=== PATIENT | female | born 1935 | race Caucasian/White ===

== ENCOUNTER 2017-05-11 02:14 | Emergency (ER) | payer OTHER, MEDICAID ==
--- NOTE | 2017-05-11 02:23 | EDPHY ---
H & P HPI/ROS: HPI CHIEF COMPLAINT: Possible bleeding from Farley catheter. HISTORY OF PRESENT ILLNESS: This patient is a very pleasant 82-year-old female she presents from [facility] for possible blood from her Farley catheter. Upon arrival to the emergency room I did evaluate her. She denies any complaints. She denies blood coming from her catheter but she states staff told her there may be some pink blood from her catheter. She has a chronic indwelling Farley catheter. She denies any abdominal pain chest pain shortness of breath or fever. Venus RN at bedside we did not visualize any blood around the Farley catheter. Farley catheter is in good position. No trauma to the vagina. No blood in the Farley catheter bag. She is wearing a right leg bag. However on rectal exam she has extensive hemorrhoids in 1 of the hemorrhoids was bleeding a little bit bright red blood. Rectal exam shows multiple external hemorrhoids body and soft. 1 is friable with some bright blood. No black tarry stool or blood on rectal exam from the rectum region except for hemorrhoidal. Past Medical History: Chronic indwelling Farley catheter Past Surgical History: No recent surgery Social History: Resides at [facility]. Family History: Noncontributory ROS REVIEW OF SYSTEMS: A comprehensive 10 point review of systems is otherwise negative aside from elements mentioned in the history of present illness. Exam Constitutional appears well nontoxic, triage nursing summary reviewed, vital signs reviewed, awake/alert. Eyes normal conjunctivae and sclera, EOMI, PERRLA. HENT normal inspection, atraumatic, moist mucus membranes, no epistaxis, neck supple/ no meningismus, no raccoon eyes. Respiratory clear to auscultation bilaterally, normal breath sounds, no respiratory distress, no wheezing. Cardiovascular rate normal, regular rhythm, no murmur, no edema, distal pulses normal. Gastrointestinal soft, non-tender, no rebound, no guarding, normal bowel sounds, no distension, no pulsatile mass. Genitourinary no CVA tenderness. Rectal exam: However on rectal exam she has extensive hemorrhoids in 1 of the hemorrhoids was bleeding a little bit bright red blood. Rectal exam shows multiple external hemorrhoids body and soft. 1 is friable with some bright blood. No black tarry stool or blood on rectal exam from the rectum region except for hemorrhoidal. Musculoskeletal no midline vertebral tenderness, full range of motion, no calf swelling, no tenderness of extremities, no meningismus, good pulses, neurovascularly intact. Skin pink, warm, & dry, no rash, skin atraumatic. Neurologic awake, alert and oriented x 3, AAOx3, moves all 4 extremities equally, motor intact, sensory intact, CN II-XII intact, normal cerebellar, normal vision, normal speech. Psychiatric normal mood/affect. Heme/Lymph/Immune no lymphadenopathy. Differential Diagnosis: Includes but is not limited to in a particular order, Farley catheter bleed, cystitis, Farley catheter balloon causing tension causing bleeding from the bladder, rectal bleeding, hemorrhoidal bleeding Medical Decision Making: This patient has no evidence of bleeding of the Farley catheter. Small amount of bright red blood on to shoe paper in her pants. This is from hemorrhoids. Visible on exam. Will allow her to be got discharged back to [facility]. Will place on Proctofoam hemorrhoidal cream. Additionally she understands return emergency room there is any further pain questions or concerns or further bleeding. On rectal exam there is no significant GI bleeding or black tarry stool. Re-evaluation: 0231: No evidence of cystitis or urinary bleed. Small amount of pink blood in her depends is from external hemorrhoids that are bleeding. No significant brisk bleed. Recommend hemorrhoidal cream. Will allow her to be discharged back to herity at [facility]. Source: Patient, EMS Constitutional: Initial Vital Signs Temperature (C) 36.8 C 05/11/17 02:20 Heart Rate 91 05/11/17 02:20 Respiratory Rate 18 05/11/17 02:20 Blood Pressure 152/108 H 05/11/17 02:20 O2 Sat (%) 95 05/11/17 02:20 O2 Delivery Mode Room Air Allergies/Adverse Reactions: No Known Allergies Allergy (Unverified 05/11/17 02:33) Home Medications: Medication Instructions Recorded Hydrocortisone [Procto-Med Hc] 30 gm TP BID #1 [email or web address] 05/11/17 Departure - Departure Disposition: Home, Routine, Self-Care Clinical Impression: Bleeding hemorrhoids Condition: Good Instructions: Hemorrhoids (ED) Additional Instructions: 1.You have bleeding from her external hemorrhoids. 2. Use this medication to help shrink the hemorrhoids. 3. Return emergency room if there is worsening symptoms questions or concerns. Referrals: Patient,NotPresent [Primary Care Provider] - As per Instructions Prescriptions: Hydrocortisone [Procto-Med Hc] 30 gm TP BID #1 [email or web address]
[2017-05-11 02:26] VITALS: TEMP 98.2; O2SAT 95
[2017-05-11 03:21] VITALS: BP 136/99; PULSE 86; RESP 17
== END 2017-05-11 03:18 | disposition home or self-care (01) ==
LOC: EDUNIT#
DX: K64.4 Residual hemorrhoidal skin tags (principal)

== ENCOUNTER 2017-12-10 09:45 | Day surgery (SDC) | payer OTHER, MEDICAID ==
--- NOTE | 2017-12-07 15:33 | CPEKG ---
Heart Rate: 72 RR Interval: 833 P-R Interval: 212 QRSD Interval: 114 QT Interval: 412 QTC Interval: 451 P [place]amo[place]: 0 QRS [place]: -66 T Wave [place]: 70 EKG Severity - ABNORMAL ECG - EKG Impression: SINUS RHYTHM EKG Impression: VENTRICULAR PREMATURE COMPLEX EKG Impression: LEFT ANTERIOR FASCICULAR BLOCK EKG Impression: PROBABLE LEFT VENTRICULAR HYPERTROPHY Electronically Signed By: Christophe Barrera 09-Dec-2017 11:36:57
[2017-12-10] MEDS ORDERED: LR 1,000 ML IV ONE (10:25)
[2017-12-10] MEDS ORDERED: LIDOCAINE 1% 2 ML INJ ID PRN (10:25)
[2017-12-10] MEDS ORDERED: PROPOFOL/EMULSION 500 MG/50 ML BOTTLE IV ONE (12:11)
[2017-12-10] MEDS ORDERED: LIDOCAINE 2% JELLY 20 ML (UROJECT) ONE (12:17)
[2017-12-10] MEDS ORDERED: IOPAMIDOL (ISOVUE-M 300) 15 ML VIAL ONE (12:17)
--- NOTE | 2017-12-10 13:12 | PDHPUP ---
History & Physical Update H&P update statement: This history and physical update is based on an assessment of the patient which was completed after admission or registration (within 24 hours), but prior to the surgery/procedure. H&P update: no change in patient's condition since H&P completed
[2017-12-10] MEDS ORDERED: BUPIVACAINE/EPI 0.5% 30 ML SDV ONE (13:13)
[2017-12-10] MEDS ORDERED: MIDAZOLAM 2 MG/2 ML VIAL ONE (13:15)
[2017-12-10] MEDS ORDERED: fentaNYL 100 MCG/2 ML INJ ONE (13:24)
--- NOTE | 2017-12-10 13:31 | POSTOPPROG ---
Post Op Note Date of Operation: 12/10/17 Surgeon: Brenda Perales (# [id number]) Anesthesia: LMA Pre-op Diagnosis: Urinary retention Post-op Diagnosis: Urinary retention Procedure: Cysto, formal suprapubic catheter placement Findings: See op note Inf/Abcess present in the surg proc area at time of surgery?: No EBL: Minimal (2 cc) Complications: None Specimen(s): None
[2017-12-10] MEDS ORDERED: ALBUTEROL 3 ML DEYVIAL IH PRN (13:47)
[2017-12-10] MEDS ORDERED: DEXAMETHASONE 4 MG/ML VIAL IVP PRN (13:47)
[2017-12-10] MEDS ORDERED: ONDANSETRON 4 MG/2 ML VIAL IVP PRN (13:47)
[2017-12-10] MEDS ORDERED: MEPERIDINE 25 MG/0.5 ML AMP IVP PRN (13:47)
[2017-12-10] MEDS ORDERED: NALOXONE HCL 0.4 MG/ML INJ IVP PRN (13:47)
[2017-12-10] MEDS ORDERED: fentaNYL 100 MCG/2 ML INJ IVP PRN (13:47)
--- NOTE | 2017-12-10 13:52 | PDANEPAE ---
ANE Past Medical History - Cardiovascular History Hx Hypertension: Yes Hx Arrhythmias: No Hx Chest Pain: No Hx Coronary Artery / Peripheral Vascular Disease: Yes Hx CHF / Valvular Disease: No Hx Palpitations: No Cardiovascular History Comment: MINIMAL BLOCKAGE -ANGIOGRAM ';LASIX FOR LEGS/ ANKLES -WEARS COMPRESSION HOSE. - Pulmonary History Hx COPD: No Hx Asthma/Reactive Airway Disease: Yes Hx Recent Upper Respiratory Infection: No Hx Oxygen in Use at Home: No Hx Sleep Apnea: No Sleep Apnea Screening Result - Last Documented: Negative Pulmonary History Comment: HASN'T USED NEBULIZER (FOR URI) 02-12. LUNGS SUSCEPTIBLE TO INFECTION. PNEUMONIA . - Neurologic History Hx Cerebrovascular Accident: No Hx Seizures: No Hx Dementia: No - Endocrine History Hx Diabetes: No Endocrine History Comment: HYPOTHYROID - Renal History Hx Renal Disorders: Yes Renal History Comment: BOSTON PLACED FOR URINARY RETENTION . - Liver History Hx Hepatic Disorders: No - Neurological & Psychiatric Hx Hx Neurological and Psychiatric Disorders: No - Cancer History Hx Cancer: No - Congenital Disorder History Hx Congenital Disorders: No - GI History Hx Gastrointestinal Disorders: Yes Gastrointestinal History Comment: HX ULCERS-ON RANITIDINE. - Other Health History Other Health History: BOSTON CATH TO BE CHANGED TO SUPRA PUBIC CATH. OA-KNEES, HANDS. - Chronic Pain History Chronic Pain: No - Surgical History Prior Surgeries: KNEE-MCL ;. CORONARY ANGIOGRAM ANE Review of Systems Review of Systems: - Exercise capacity METS (RN): 3 METS ANE Patient History - Allergies Allergies/Adverse Reactions: No Known Allergies Allergy (Verified 12/02/17 15:18) - Home Medications Home Medications: Benadryl 12/02/17 [Last Taken 12/09/17] Ferrous Sulfate 12/02/17 [Last Taken 12/09/17] Furosemide 12/02/17 [Last Taken 12/08/17] Levothyroxine Sodium 12/02/17 [Last Taken 12/10/17] Metoprolol Tartrate 12/02/17 [Last Taken 12/10/17] Ranitidine HCl 12/02/17 [Last Taken 12/09/17] Sodium Chloride 12/02/17 [Last Taken 12/10/17] Vitamin D3 12/02/17 [Last Taken 12/09/17] - NPO status NPO Since - Liquids (Date): 12/10/17 NPO Since - Liquids (Time): 08:30 NPO Since - Solids (Date): 12/09/17 NPO Since - Solids (Time): 17:30 - Anes Hx Anes Hx: no prior problems - Smoking Hx Smoking Status: Never smoked ANE Labs/Vital Signs - Labs Result Diagrams: 12/07/17 15:30 - Vital Signs Blood Pressure: 137/84 Heart Rate: 68 Respiratory Rate: 15 O2 Sat (%): 94 Height: 167.64 cm Weight: 71.668 kg ANE Physical Exam - Airway Neck exam: decreased ROM Mallampati Score: Class 2 Mouth exam: normal dental/mouth exam - Pulmonary Pulmonary: no respiratory distress, clear to auscultation, reduced air movement - Cardiovascular Cardiovascular: regular rate and rhythym, systolic murmur - ASA Status ASA Status: III ANE Anesthesia Plan Anesthesia Plan: GA w LMA
[2017-12-10] MEDS ORDERED: BACITRACIN ZINC 14.2 GM OINTTUBE TP ONE (14:04)
[2017-12-10] MEDS ORDERED: ONDANSETRON 4 MG/2 ML VIAL ONE (14:41)
--- NOTE | 2017-12-10 15:00 | GOP ---
[f rep st] OPERATIVE REPORT DATE OF OPERATION: 12/10/2017 SURGEON: Brenda Perales MD ANESTHESIA: Laryngeal mask with local. PREOPERATIVE DIAGNOSIS: Urinary retention. POSTOPERATIVE DIAGNOSIS: Urinary retention. PROCEDURE PERFORMED: Cystourethroscopy with formal suprapubic catheter placement. FINDINGS: No changes in cystoscopic appearance of the bladder compared to what was noted previously in the office. SPECIMENS: None. ESTIMATED BLOOD LOSS: Minimal (~ 2 cc). INDICATIONS: This woman has had recurrent urinary retention requiring indwelling Farley catheter. After discussions between the patient, myself, and her family, the patient has opted to undergo formal suprapubic catheter placement at this time. The indications for the procedures, as well as potential risks and complications, were discussed with the patient preoperatively. She appeared to understand, her questions were answered, and she wished to proceed. Written informed surgical consent was thereafter obtained. DESCRIPTION OF PROCEDURE: The patient was brought to the operating room and administered laryngeal mask anesthesia. She was carefully placed in the dorsal lithotomy position on the cystoscopic table. The existing indwelling Farley catheter was removed. The abdomen and genitalia were sterilely prepped with Betadine scrub and paint then draped in usual sterile fashion. Cystoscopy was performed with the 30-degree and 70 degree lenses through a 22- Yemeni sheath. The urethra was unremarkable. Bladder was heavily trabeculated with a few shallow diverticula. Otherwise, no worrisome areas of abnormal erythema, tumors, nor foreign bodies were appreciated. Ureteral orifices were normal in regards to shape and position along the trigone. There was some noted mucosal inflammation at the bladder base posteriorly, consistent with recent indwelling Farley catheter. The bladder was then filled to maximum capacity through the cystoscope. The cystoscope was withdrawn. The patient was placed in steep Trendelenburg position. The Lowsley retractor was then placed into the bladder through the urethra and used to tent up the anterior aspect of the bladder near the dome in the suprapubic midline, just a few centimeters above the level of the pubic symphysis. I then used a scalpel to cut the skin, followed by use of electrocautery and spreading of the subcutaneous tissue with a clamp until I was able to deliver the Lowsley through the abdominal incision. A 24-Yemeni Farley catheter was secured to the Lowsley retractor with the use of an 0 silk suture. The catheter was then positioned within the bladder by pulling back on the Lowsley. The catheter was disconnected from the Lowsley and approximately 15 cc of sterile water placed in the catheter balloon. Cystoscopy was repeated. The catheter was noted to be in excellent position within the bladder. The catheter was then secured to the surrounding skin with an 0 silk suture. The wound was then dressed with antibiotic ointment, 4 x 4 gauze, and tape. The catheter was connected to bag drainage. A total of 20 cc of 0.5% Marcaine with epinephrine was used for local anesthetic during the case. The patient was then awakened, transferred to her bed, then taken to the recovery room. She tolerated the procedure well overall. COMPLICATIONS: None. DISPOSITION: She was transferred to the recovery room in stable condition, will be discharged with standard instructions. She will return to my office in approximately 1 week for wound examination and replacement of suprapubic catheter. /[id number]/MODL MTDD
--- NOTE | 2017-12-10 15:54 | POSTANESTH ---
Post Anesthetic Evaluation Cardiovascular Status: Normal, Stable Respiratory Status: Normal, Stable Pain Control: Adequate, Prn Tx Ordered Nausea/Vomiting Control: Adequate, Prn Tx Ordered Complications Possibly Related to Anesthesia: None Noted
[2017-12-10 16:54] VITALS: BP 147/83
== END 2017-12-10 16:20 | disposition home or self-care (01) ==
LOC: FSGY 09:45
PROVIDERS: ATTEND Specialist
PROC: 0TH Urinary System, Insertion (ICD-10-PCS; principal; 2017-12-10 11:45)
PROC: 0TJB4ZZ Inspection of Bladder, Percutaneous Endoscopic Approach (ICD-10-PCS; principal; 2017-12-10 11:45)
DX: R33.9 Retention of urine, unspecified (principal)
CPT/HCPCS: 51040; 93005; C2627; J0696; J2250; J2405; J2704; J3010; Q9967

== ENCOUNTER 2018-11-18 05:56 | Emergency (ER) | payer OTHER, MEDICAID ==
--- NOTE | 2018-11-18 06:25 | EDPHY ---
H & P Stated Complaint: mech fall onto R side. R knee, R hip, and R sided rib pain. Shingles - Personal History Current Tetanus/Diphtheria Vaccine: Yes Current Tetanus Diphtheria and Acellular Pertussis (TDAP): Yes - Medical/Surgical History Hx Asthma: No Hx Chronic Respiratory Disease: No Hx Diabetes: No Hx Cardiac Disease: No Hx Renal Disease: No Hx Cirrhosis: No Hx Alcoholism: No Hx HIV/AIDS: No Hx Splenectomy or Spleen Trauma: No Other PMH: Back pain, weakness, uti., shingles - Social History Smoking Status: Never smoked Time Seen by Provider: 11/18/18 06:12 HPI/ROS: Chief Complaint: Mechanical fall HPI: 83-year-old woman had a mechanical trip and fall this morning when she was up going to the bathroom. Patient states she got her foot caught on the carpet edge. She landed on her right knee and struck the right side of her head. Patient currently has active shingles on her right chest has right chest wall pain but she does not believe she struck her chest. No shortness of breath. She did not have a loss of consciousness. She does have a indwelling Farley catheter because of urinary retention. Denies any other medical problems. No nausea or vomiting. No numbness or weakness. No neck pain. ROS: 10 systems were reviewed and were negative except those elements noted in the HPI. PMH: Urinary retention Social History: No smoking, no alcohol, no recreational drug use Family History: non-contributory Physical Exam: Gen: Awake, Alert, Airway Intact HEENT: Head: Mild right parietal tenderness, no contusion crepitus or ecchymosis Eyes: PERRLA, EOMI Ears: No hemotympanum Nose: No epistaxis Mouth: Normal dentition, Airway patent Face: No deformity Neck: non-tender, no stepoff, Full ROM without pain Chest: Tender along the right chest wall, active zoster noted, no pain with lateral or AP loading of the chest wall lungs CTA Heart: normal heart tones Abd: soft, non-tender, atraumatic Pelvis: non-tender, stable to AP and Lateral compression Back: atraumatic, no midline tenderness Ext: Right knee mild tenderness, no deformity, is able to flex to 45 Skin: no rash Neuro: CN II-XII intact, Strength 5/5 in all extremities, sensation intact in all extremities (Fernandez Mcgraw) Constitutional: Initial Vital Signs Temperature (C) 36.6 C 11/18/18 05:59 Heart Rate 82 11/18/18 05:59 Respiratory Rate 20 11/18/18 05:59 Blood Pressure 148/94 H 11/18/18 05:59 O2 Sat (%) 94 11/18/18 05:59 O2 Delivery Mode Room Air Allergies/Adverse Reactions: No Known Allergies Allergy (Verified 11/18/18 05:59) Home Medications: Medication Instructions Recorded Benadryl 12/02/17 Ferrous Sulfate 12/02/17 Furosemide 12/02/17 Levothyroxine Sodium 12/02/17 Metoprolol Tartrate 12/02/17 Ranitidine HCl 12/02/17 Sodium Chloride 12/02/17 Vitamin D3 12/02/17 Medical Decision Making - Diagnostics Imaging: I viewed and interpreted images myself - Diagnostics Imaging Results: Chest x-ray: No acute injury. Right knee: Chronic changes, no acute fractures. (Fernandez Mcgraw) ED Course/Re-evaluation: 83-year-old woman status post mechanical slip and fall. She did her head. No loss of consciousness. She is not on blood thinners. No obvious injuries or chest x-ray. Chronic changes are knee x-ray. Nothing on her CT scan of her head per my interpretation. Awaiting radiology read. Patient signed out to Dr. Hallman pending Radiology interpretation. (Fernandez Mcgraw) Other Provider: I assumed care of this patient from Dr. Mcgraw at 7:00 p.m.. The report on the head CT scan, which I have personally reviewed, is negative/no acute intracranial abnormality. I have reviewed her knee x-ray and chest x-ray. N/C evidence of rib fractures or pneumothorax. Is not see evidence of knee fracture dislocation. These results were relayed to the patient. Nursing staff will walk with her to be sure that she is able to ambulate at her baseline (which is with a walker). I anticipate that she will be discharged home. Patient ambulated with a walker without difficulty. Her daughter arrived in the emergency department and will take her back home to [facility]. (Rosemary Hallman) Departure - Departure Disposition: Home, Routine, Self-Care Clinical Impression: Fall Qualifiers: Encounter type: initial encounter Qualified Code(s): W19.XXXA - Unspecified fall, initial encounter Condition: Fair Instructions: Fall Prevention for Older Adults (ED) Additional Instructions: Follow up with your doctor at [facility]. I am also providing a referral to the bus repair supervisor disease education specialist for the emergency department. In review of your chest x-ray, knee x-ray, and a CT scan of your head, I have not found any injuries related to this fall. Please be careful. Referrals: Ruth Guerrier MD [Medical Doctor] - As per Instructions
[2018-11-18 07:22] VITALS: BP 139/74
== END 2018-11-18 07:27 | disposition home or self-care (01) ==
LOC: EDUNIT#
DX: S09.90XA Unspecified injury of head, initial encounter (principal); S89.91XA Unspecified injury of right lower leg, initial encounter; S79.911A Unspecified injury of right hip, initial encounter; S29.9XXA Unspecified injury of thorax, initial encounter; W01.0XXA Fall on same level from slipping, tripping and stumbling without subsequent striking against object, initial encounter; B02.9 Zoster without complications; R33.9 Retention of urine, unspecified